=== PATIENT | female | born 1990 | race Caucasian/White ===

== ENCOUNTER → 2018-03-05 14:47 | Outpatient (CLI) | payer SELFPAY ==
[2018-03-05 17:55] LABS: Chlamydia Trachomatis by PCR Negative (Negative); Neisserai gonorrhoeae by PCR Negative (Negative); Probe Check PASS; Sample Adequacy Control PASS; Specimen Processing Control PASS
== END ==
PROVIDERS: Visit Provider Obstetrics & Gynecology
DX: Z11.3 Encounter for screening for infections with a predominantly sexual mode of transmission (principal)
CPT/HCPCS: 87491; 87591

== ENCOUNTER → 2018-03-23 14:33 | Outpatient (CLI) | payer SELFPAY ==
[2018-03-23 15:57] LABS: Absolute Neutrophil Count 3.9 X10^3/uL (2.0-7.7); Eosinophil# 0.04 X10^3/uL; Eosinophils% 0.7 % (0-5); Hematocrit 37.7 % (37-47); Hemoglobin 12.4 g/dl (12.0-15.0); Lymphocyte % 26.1 % (19-41); Mean Corp Hgb Conc 32.9 g/gl (32-36); Mean Corpuscular Hgb 28.9 pg (27.0-32.0); Mean Corpuscular Volume 87.9 fL (81-99); Mean Platelet Vol. 10.5 fl (6.2-12.0); Monocyte# 0.33 X10^3/uL; Monocyte% 5.7 % (0-10); Neutrophil # 3.86 X10^3/uL (2.7-7.7); Neutrophil % 67.3 % (47-70); Platelet Count 166 K/mm3 (150-450); RBC Distribution Width CV 12.3 % (11.6-14.6); RBC Distribution Width SD 39.5 fl (35.1-43.9); Red Blood Count 4.29 M/mm3 (4.2-5.4); White Blood Count 5.7 K/mm3 (4.4-11.0)
[2018-03-23 16:01] LABS: POSITIVE COUNT NO; POSITIVE DIFFERENTIAL NO; POSITIVE MORPHOLOGY NO
[2018-03-23 16:04] LABS: Color, Urine Yellow (Yellow); Glucose, Dipstick Normal (Normal); Ketone-Dipstick Negative (Negative); Leukocyte Esterase-Dipstick 100 /ul (Negative); Nitrite-Dipstick Negative (Negative); Occult Blood-Urine Negative /ul (Negative); Protein-Dipstick Negative (Negative); Urine Bilirubin Dipstick Negative (Negative); Urine Clarity Sl. Cloudy (Clear); Urine Urobilinogen Normal (Normal)
[2018-03-23 16:18] LABS: Amphetamine Urine VISTA NEGATIVE (<1000 ng/mL); Barbiturate Urine VISTA NEGATIVE (< 200 ng/mL); Benzodiazepine Urine VISTA NEGATIVE (< 200 ng/mL); Cocaine Urine VISTA NEGATIVE (< 300 ng/mL); Ecstacy Urine VISTA NEGATIVE (< 500 ng/mL); Methadone Urine VISTA NEGATIVE (< 300 ng/mL); PCP Urine VISTA NEGATIVE (< 25 ng/mL); THC Urine VISTA NEGATIVE (< 50 ng/mL); Vista UDS pH Range 6
[2018-03-23 16:26] LABS: Thyroid Stim Hormone (TSH) 0.92 uIU/mL (0.358-3.74)
[2018-03-24 09:42] LABS: HIV - WCH Non-Reactive (Nonreactive); Rubella IgG 77.1 IU/mL
[2018-03-25 13:10] LABS: HEPATITIS B SURFACE AG Negative (Negative); Hep C Antibodies <0.1 s/co ratio (0.0-0.9)
[2018-03-26 02:59] LABS: Prenatal RPR NONREACTIVE (NONREACTIVE)
== END ==
PROVIDERS: Visit Provider Obstetrics & Gynecology
DX: Z34.81 Encounter for supervision of other normal pregnancy, first trimester (principal)
CPT/HCPCS: 36415; 80307; 81002; 84443; 85025; 86703; 86762; 86803; 87340

== ENCOUNTER → 2018-07-16 10:16 | Outpatient (CLI) | payer MEDICAID, SELFPAY ==
[2018-07-16 13:41] LABS: Hematocrit 33.6 % (37-47); Hemoglobin 10.9 g/dl (12.0-15.0); Mean Corp Hgb Conc 32.4 g/gl (32-36); Mean Corpuscular Hgb 29.5 pg (27.0-32.0); Mean Corpuscular Volume 90.8 fL (81-99); Mean Platelet Vol. 10.2 fl (6.2-12.0); Platelet Count 164 K/mm3 (150-450); RBC Distribution Width CV 12.2 % (11.6-14.6); RBC Distribution Width SD 40.3 fl (35.1-43.9); White Blood Count 5.7 K/mm3 (4.4-11.0)
[2018-07-16 13:42] LABS: Scan Indicated on CBC? Y/N NO
[2018-07-16 13:46] LABS: Glucose Challenge Gest 1H 50g 69 mg/dL (70-140)
== END ==
PROVIDERS: Visit Provider Obstetrics & Gynecology
DX: Z34.83 Encounter for supervision of other normal pregnancy, third trimester (principal)
CPT/HCPCS: 36415; 82950; 85027; 86850

== ENCOUNTER → 2018-09-02 13:44 | Outpatient (CLI) | payer MEDICAID, SELFPAY ==
[2014-09-08 17:10] VITALS: BMI 24.3
== END ==
PROVIDERS: Visit Provider Obstetrics & Gynecology
DX: Z36.85 Encounter for antenatal screening for Streptococcus B (principal)
CPT/HCPCS: 87077; 87081; 87186

== ENCOUNTER 2018-10-03 08:35 | Inpatient (IN) | payer MEDICAID, SELFPAY ==
[2014-09-08 17:10] VITALS: BMI 24.3
[2018-10-03 09:27] VITALS: BMI 23.8
[2018-10-03] MEDS: Lactated Ringers 1,000 ML 50 ML IV (09:50)
[2018-10-03 10:11] LABS: Absolute Lymphocyte Count 1.31 X10^3/ul (0.83-4.51); Absolute Neutrophil Count 3.9 X10^3/uL (2.0-7.7); Basophil# 0.01 X10^3/uL; Basophil% 0.2 % (0-1); Eosinophil# 0.02 X10^3/uL; Eosinophils% 0.4 % (0-5); Hemoglobin 13.1 g/dl (12.0-15.0); Lymphocyte # 1.31 X10^3/ul (4.0); Lymphocyte % 23.1 % (19-41); Mean Corp Hgb Conc 33.6 g/gl (32-36); Mean Corpuscular Hgb 30.3 pg (27.0-32.0); Mean Corpuscular Volume 90.1 fL (81-99); Mean Platelet Vol. 10.9 fl (6.2-12.0); Monocyte# 0.46 X10^3/uL; Monocyte% 8.1 % (0-10); Neutrophil # 3.87 X10^3/uL (2.7-7.7); Platelet Count 108 K/mm3 (150-450); RBC Distribution Width CV 12.9 % (11.6-14.6); RBC Distribution Width SD 41.8 fl (35.1-43.9); Red Blood Count 4.33 M/mm3 (4.2-5.4); White Blood Count 5.7 K/mm3 (4.4-11.0)
[2018-10-03 10:12] LABS: POSITIVE COUNT NO; POSITIVE DIFFERENTIAL NO; POSITIVE MORPHOLOGY NO
[2018-10-03] MEDS: Oxytocin 30 units/NS 500 ml 30 UNITS/500 ML IV.SOLN IV (13:41)
[2018-10-03] MEDS: Oxytocin 30 units/NS 500 ml 30 UNITS/500 ML IV.SOLN 334 UNITS IV (17:40)
--- NOTE | 2018-10-03 18:09 | PCM.OPRPT ---
Vaginal Delivery Maternal Presentation: Spontaneous Rupture of Membranes Presents at 39w4d ega with SROM at home 0700 today Amniotic Membrane Rupture Type: Spontaneous at home Rupture of Membrane time: 0700 Amniotic Fluid Description: Clear Final DAVIDA: 10/06/18 Final DAVIDA Source: [place] <20 weeks Gestational age: 39 Weeks and 4 Days Date of Procedure: 10/03/18 Pre-Operative Diagnosis: Labor Post-Operative Diagnosis: same Surgery/ Procedure Performed: Spontaneous Vaginal Delivery Type of Anesthesia: None, Local with 2% lidocaine - for repair Description of Procedure: Shabana was admitted with SROM. Irregular contractions were noted. She was started on ampillin intravenously for GBS prophylaxis. After 3 hours with irregular contractions noted pitocin augmentation was started. She then progessed to FD and pushed over 3 contractions to deliver a live female without complication. At delivery the mouth and nares were suctioned with a bulb suction. Baby was then placed on mom's chest. Delayed cord clamping was employed. The cord was then clamped and cut. Cord bloods were collected. The placenta was delivered spontaneously intact with an eccentrically located 3VC. The uterus contracted well. Inspection revealed a small posterior vaginal perineal second degree tear that was repaired under local anesthesia with 2-0 Vicryl suture. Presentation: Vertex Placental Delivery Description: Spontaneous Placenta Disposition: [facility] Percentage of Placenta Abruption: 0 Cord Vessel Description: 3 Vessels Nuchal Cord Compression: Without compression Cord Entanglement: None Estimated Blood Loss: 200cc A gender: Female (1 minute): 9 (5 minute): 9 Episiotomy Description: None Laceration: Midline, Perineal Extension/lac, Vaginal Extension/lac, 2nd degree Medications given after delivery: IV Pitocin Complications: None
[2018-10-03] MEDS: Oxytocin 30 units/NS 500 ml 30 UNITS/500 ML IV.SOLN 167 UNITS IV (18:10)
--- NOTE | 2018-10-03 18:16 | DCINST_ITS ---
Discharge Diet: No Restrictions Discharge Activity: Return to Normal Activity, May Drive, May Shower Return to work on:: 12/03/18 May resume sexual activity in: 6 weeks Call your doctor if your incision/area has: Sudden Increased Bleeding, Increased Pain/ Swelling, Foul Smelling Discharge Call your doctor if you observe: Fever of 101 or Higher, Inability to urinate, Inability to have a bowel movement, Using more than one pad per hour, Shortness of breath, Chest pain, Calf discomfort, Uncontrolled pain Cleanse incision/area with: Soap & Water Additional Instructions: If you experience any of the following, contact your healthcare provider. * Bleeding that soaks a pad every hour for 2 hours * Fever 100.4 or higher * Unrelieved incision or abdominal pain * Swelling, redness, discharge or bleeding from your incision or episiotomy site * Your incision begins to separate * Problems urinating (including inability to urinate or burning while urinating). * Visual changes * Severe headache * Flu-like symptoms * Pain or redness in one of both of your breasts * Pain, warmth, tenderness or swelling in your legs, especially the calf area * Frequent nausea and vomiting * Symptoms of depression or anxiety If you experience any of the following, call 911 or go to the nearest Emergency Room. * Chest pain * Problems breathing * Seizure activity * Partial or complete paralysis of a body part, slurred speech, weakness or drooping of the face, or a sudden inability to walk or hold your balance Allergies/Adverse Reactions: Allergies Cephalosporins Allergy (Verified 10/03/18 09:29) Anaphylaxis Medications to take at Discharge Vits [Prenatabs FA ] 1 tablet PO DAILY 09/08/14 Ferrous Sulfate 325 mg PO DAILY 10/03/18 Ibuprofen [Motrin] 600 mg PO Q6H PRN PRN #30 tab 10/03/18 The following prescriptions were given: Ibuprofen [Motrin] 600 mg PO Q6H PRN PRN #30 tab PRN Reason: pain or cramping Please Follow Up With: Mary Mena MD When: 6 weeks Primary Care Physician: Ksenia Hopson NP-C [Primary Care Provider] - Test Results: Test results from this visit will be discussed in further detail at your follow- up appointment, if applicable. Proposed Discharge Date: 10/05/18
[2018-10-03] MEDS: Ibuprofen 600 MG Tablet PO (19:00)
[2018-10-03] MEDS: 0.9% Saline Lock 10 ML Syringe IV (19:29)
[2018-10-03 20:10] VITALS: BP 113/58; PULSE 74; RESP 18; TEMP 36.9
[2018-10-04 01:00] VITALS: BP 107/59; PULSE 77; RESP 18; TEMP 36.1; O2SAT 97
[2018-10-04 03:55] VITALS: BP 99/52; PULSE 73; RESP 16; TEMP 36.8; O2SAT 98
[2018-10-04 06:25] LABS: Hematocrit 38.3 % (37-47); Mean Corp Hgb Conc 33.9 g/gl (32-36); Mean Corpuscular Volume 88.2 fL (81-99); Mean Platelet Vol. 10.8 fl (6.2-12.0); Platelet Count 124 K/mm3 (150-450); RBC Distribution Width CV 12.7 % (11.6-14.6); RBC Distribution Width SD 39.8 fl (35.1-43.9); Red Blood Count 4.34 M/mm3 (4.2-5.4)
[2018-10-04 06:37] LABS: Scan Indicated on CBC? Y/N NO
--- NOTE | 2018-10-04 07:12 | PN_ITS ---
Subjective: No complaints other than some cramping with nursing. Bleeding light. Objective: Afeb VSS. Hgb stable - Physical Exam General: Alert, Oriented x3, Cooperative, No apparent distress Lungs: Clear to auscultation, Normal air movement Cardiovascular: Regular rate, Regular Rhythm Abdomen: Soft, Non Tender, Non-Distended, - - Fundus firm nontender Extremities: No edema Skin: No rashes Neurological: Neuro grossly intact Psych/Mental Status: Normal Affect Comment: Lochia light Vital Signs Temp Pulse Resp BP Pulse Ox 98.3 F 73 16 99/52 L 98 10/04/18 03:55 10/04/18 03:55 10/04/18 03:55 10/04/18 03:55 10/04/18 03:55 Oxygen Delivery Method Room Air Weight: 176 lb Body Mass Index (BMI) 23.8 Intake and Output for Last 24 Hours 10/02/18 10/03/18 10/04/18 23:59 23:59 23:59 Intake Total 1409 / 1409 Output Total 2550 / 2550 Balance -1141 / -1141 Laboratory Tests Past 24 Hrs 10/03/18 10/03/18 10/03/18 09:50 09:50 09:50 WBC 5.7 RBC 4.33 Hgb 13.1 Hct 39.0 MCV 90.1 MCH 30.3 MCHC 33.6 RDW 12.9 RDW Differential 41.8 Plt Count 108 L MPV 10.9 Immature Gran % (Auto) 0.200 Neut % (Auto) 68.0 Lymph % (Auto) 23.1 [place] % (Auto) 8.1 Eos % (Auto) 0.4 Baso % (Auto) 0.2 Absolute Neuts (auto) 3.9 Absolute Lymphs (auto) 1.31 Total Counted Not Reportable Blood Type A NEGATIVE Antibody Screen TNP NEGATIVE Screen Baby's Blood Type Baby's KATEY 10/03/18 10/04/18 22:30 05:40 WBC 9.0 RBC 4.34 Hgb 13.0 Hct 38.3 MCV 88.2 MCH 30.0 MCHC 33.9 RDW 12.7 RDW Differential 39.8 Plt Count 124 L MPV 10.8 Immature Gran % (Auto) Neut % (Auto) Lymph % (Auto) [place] % (Auto) Eos % (Auto) Baso % (Auto) Absolute Neuts (auto) Absolute Lymphs (auto) Total Counted Blood Type Antibody Screen Screen NEGATIVE Baby's Blood Type A POSITIVE Baby's KATEY NEGATIVE Medical Necessity - Tobacco Use Smoking Status: Never smoker Assessment/Plan Doing well on PP day#1. Continue routine PP care. Will plan for discharge tomorrow.
[2018-10-04 08:55] VITALS: BP 115/75; PULSE 82; RESP 18; TEMP 36.8; O2SAT 97
[2018-10-04] MEDS: Ibuprofen 600 MG Tablet PO (09:36)
[2018-10-04] MEDS: Ferrous Sulfate 325 MG Tablet PO (09:37)
[2018-10-04 12:40] VITALS: BP 106/58; PULSE 77; RESP 18; TEMP 36.7; O2SAT 97
[2018-10-04] MEDS: Senna/Docusate Sodium 1 Tablet PO (12:50)
[2018-10-04] MEDS: Prenatal Vits Tablet 1 TABLET PO (12:50)
--- NOTE | 2018-10-04 15:04 | NURSING ---
this director of emergency nursing reviewed the documentation completed by Naeem Singh and it is complete.
[2018-10-04 16:00] VITALS: BP 121/83; PULSE 64; RESP 18; TEMP 36.8; O2SAT 98
[2018-10-04 20:25] VITALS: BP 122/76; PULSE 88; RESP 18; TEMP 36.8
[2018-10-05] MEDS: Ibuprofen 600 MG Tablet PO (01:16)
[2018-10-05 01:19] VITALS: BP 117/77; PULSE 71; RESP 18; TEMP 36.6
--- NOTE | 2018-10-05 07:47 | PCM.PN.OB ---
Subjective: PPD#2 Doing wel. Nursing. Baby is sleepy . States some epigastric pain this am. - Physical Exam General: Alert, Oriented x3, Cooperative, No apparent distress HEENT: Atraumatic Neck: Supple Neurological: Cranial nerves II-XII grossly intact Vital Signs Temp Pulse Resp BP Pulse Ox 97.9 F 71 18 117/77 98 10/05/18 01:19 10/05/18 01:19 10/05/18 01:19 10/05/18 01:10/04/18 16:00 Oxygen Delivery Method Room Air Weight: 79.832 kg Body Mass Index (BMI) 23.8 Intake and Output for Last 24 Hours 10/03/18 10/04/18 10/05/18 23:59 23:59 23:59 Intake Total 1409 / 1409 Output Total 2550 / 2550 Balance -1141 / -1141 Medical Necessity - Tobacco Use Smoking Status: Never smoker Assessment/Plan PPD#2 Stable pp. Dischg home today. Diff dx of epigastric pain reviewed. Recommend watch and if inc after meals, consider LFTs (cholecystitis possible after delivery) May also try : avoid ibuprofen/ aleve and take prn tums, mylanta empiric trial. RTO in 6 wk for pp check.
[2018-10-05 09:36] VITALS: BP 107/66; PULSE 70; RESP 16; TEMP 36.6; O2SAT 97
== END 2018-10-05 11:30 | disposition home or self-care (01) | DRG 560 ==
PROVIDERS: Admitting Provider Obstetrics & Gynecology; Family Provider Nurse Practitioner Family; PCP Nurse Practitioner Family; Visit Provider Obstetrics & Gynecology
DX: O98.82 Other maternal infectious and parasitic diseases complicating childbirth (principal); B95.1 Streptococcus, group B, as the cause of diseases classified elsewhere; O70.1 Second degree perineal laceration during delivery; Z3A.39 39 weeks gestation of pregnancy; Z37.0 Single live birth; O90.89 Other complications of the puerperium, not elsewhere classified; R10.13 Epigastric pain
CPT/HCPCS: 59025; 59050; 85025; 85027; 85461; 86850; 86900; 90384; 99218; J7120; A4216; G0378; J0290; J2790

== ENCOUNTER → 2018-11-25 14:16 | Outpatient (CLI) | payer MEDICAID, SELFPAY ==
[2018-11-30 13:27] LABS: HPV Reflexed? NOT INDICATED
== END ==
LOC: WOBLAB 14:17 → LABSPEC 14:17
PROVIDERS: Family Provider Nurse Practitioner Family; PCP Nurse Practitioner Family; Visit Provider Obstetrics & Gynecology
DX: Z12.4 Encounter for screening for malignant neoplasm of cervix (principal)
CPT/HCPCS: 88175; G0145

== ENCOUNTER → 2019-02-14 18:06 | Outpatient (CLI) | payer MEDICAID, SELFPAY ==
[2019-02-15 03:03] LABS: Chlamydia Trachomatis by PCR Negative (Negative); Neisserai gonorrhoeae by PCR Negative (Negative); Probe Check PASS; Sample Adequacy Control PASS; Specimen Processing Control PASS
== END ==
PROVIDERS: Referring Provider Obstetrics & Gynecology; Visit Provider Obstetrics & Gynecology
DX: Z11.3 Encounter for screening for infections with a predominantly sexual mode of transmission (principal)
CPT/HCPCS: 87491; 87591

== ENCOUNTER → 2019-03-14 09:44 | Outpatient (CLI) | payer MEDICAID, SELFPAY ==
--- NOTE | 2019-03-14 09:47 | VDLE_ITS ---
Reason For Study: Edema RIGHT LEFT GSV is normal. GSV is normal. CFV is compressible, spontaneous, phasic, CFV is compressible, spontaneous, phasic, competent and demonstrates normal competent, and demonstrates normal augmentation. augmentation. FV is compressible, spontaneous, phasic, Lt FV is compressible, spontaneous, phasic, competent and demonstrates normal and INCOMPETENT augmentation. POP V is compressible, spontaneous, phasic, Lt PopV is compressible, spontaneous, phasic, competent and demonstrates normal and INCOMPETENT. augmentation. T/P Trunk is compressible. T/P Trunk is compressible. PTV is compressible. PTV is compressible. LT PerV is compressible. RT PerV is compressible. SFJ is competent and measures 0.52cm x 0.56 SFJ is competent and measures 0.35cm x 0.36 cm. cm. GSV proximal thigh measures 0.31cm x 0.28 cm. GSV proximal thigh measures 0.28cm x 0.28 cm. GSV at knee measures 0.25cm x 0.25 cm. GSV at knee measures 0.13cm x 0.15 cm. GSV is competent throughout. GSV is competent throughout. SSV proximal calf is INCOMPETENT for greater SSV proximal calf is INCOMPETENT for greater than 0.5 seconds and measures 0.84cm x 1.05 than 0.5 seconds and measures 0.70cm x 0.68 cm. cm. Incompetent perf noted Rt calf 12cm proximal to medial malleolus. Procedure Exam performed in department. A preliminary report was called and/or faxed to Dr. Irving. Interpretation Summary Deep veins of the lower extremities are bilaterally patent and compressible segmentally. There is no evidence of deep vein thrombosis on either side. Valvular competence appears intact within the proximal deep venous system on the right . The left femoral vein and popliteal vein are incompetent. The great saphenous veins appear bilaterally patent and compressible segmentally. Sapheno-femoral junctions are bilaterally competent . Valvular competence appears to be intact segmentally within the great saphenous veins bilaterally. Small saphenous veins are patent and incompetent bilaterally. An incompetent focused factory manager vein is noted in the right calf, located 12 centimeters proximal to the right medial malleolus. Ordering Physician: Jane Irving Referring Physician: Ksenia Hopson Performed By: Debra Sarah, STELLA, RVT
== END ==
PROVIDERS: Family Provider Nurse Practitioner Family; PCP Nurse Practitioner Family; Referring Provider Podiatrist; Visit Provider Podiatrist
DX: R60.0 Localized edema (principal); I87.2 Venous insufficiency (chronic) (peripheral); M79.605 Pain in left leg; M79.604 Pain in right leg
CPT/HCPCS: 93970

== ENCOUNTER → 2019-03-14 11:56 | Outpatient (CLI) | payer MEDICAID, SELFPAY ==
[2019-03-14 12:31] LABS: Hematocrit 43.9 % (37-47); Hemoglobin 14.1 g/dL (12.0-15.0); Mean Corp Hgb Conc 32.1 g/dL (32-36); Mean Corpuscular Hgb 28.3 pg (27.0-32.0); Mean Corpuscular Volume 88.2 fL (81-99); Mean Platelet Vol. 10.2 fl (6.2-12.0); Platelet Count 159 K/mm3 (150-450); RBC Distribution Width CV 11.9 % (11.6-14.6); RBC Distribution Width SD 38.1 fl (35.1-43.9); Red Blood Count 4.98 M/mm3 (4.2-5.4); White Blood Count 4.9 K/mm3 (4.4-11.0)
[2019-03-14 13:14] LABS: AST(SGOT) 14 U/L (15-37); Alanine Aminotransfer ALT/SGPT 18 U/L (13-56)
== END ==
PROVIDERS: Family Provider Nurse Practitioner Family; PCP Nurse Practitioner Family; Referring Provider Podiatrist; Visit Provider Podiatrist
DX: B35.1 Tinea unguium (principal); R60.0 Localized edema; I87.2 Venous insufficiency (chronic) (peripheral); M79.604 Pain in right leg; M79.605 Pain in left leg
CPT/HCPCS: 36415; 84450; 84460; 85027; 93970

== ENCOUNTER → 2019-04-21 11:19 | Outpatient (CLI) | payer MEDICAID, SELFPAY ==
[2019-04-21 11:58] LABS: Hematocrit 41.1 % (37-47); Hemoglobin 13.5 g/dL (12.0-15.0); Mean Corp Hgb Conc 32.8 g/dL (32-36); Mean Corpuscular Hgb 28.9 pg (27.0-32.0); Mean Platelet Vol. 10.2 fl (6.2-12.0); Platelet Count 157 K/mm3 (150-450); RBC Distribution Width CV 12.4 % (11.6-14.6); RBC Distribution Width SD 39.6 fl (35.1-43.9); Red Blood Count 4.67 M/mm3 (4.2-5.4)
[2019-04-21 12:43] LABS: AST(SGOT) 15 U/L (15-37); Alanine Aminotransfer ALT/SGPT 20 U/L (13-56)
== END ==
PROVIDERS: Family Provider Nurse Practitioner Family; PCP Nurse Practitioner Family; Referring Provider Podiatrist; Visit Provider Podiatrist
DX: B35.1 Tinea unguium (principal)
CPT/HCPCS: 36415; 84450; 84460; 85027

== ENCOUNTER 2024-01-13 16:38 | Emergency (ER) | payer MEDICAID, SELFPAY ==
[2024-01-13 16:39] VITALS: BP 149/88; PULSE 82; RESP 18; TEMP 36.9; O2SAT 98; BMI 21.3
--- NOTE | 2024-01-13 17:14 | CT_ITS ---
STUDY: CT CERVICAL SPINE WITHOUT CONTRAST REASON FOR EXAM: Female, 33 years old. neck pain RADIATION DOSAGE (If Supplied By Facility): CTDIvol = ( 133 ) mGy, DLP = ( 304.60 ) mGycm TECHNIQUE: High resolution transaxial imaging was performed without contrast material. Sagittal and coronal images were reconstructed. Individualized dose optimization techniques were used for this CT. COMPARISON: None FINDINGS: Normal craniovertebral junction. Normal anterior atlantoaxial articulation. Normal odontoid process. Normal cervical lordosis. Normal vertebral bodies and posterior osseous elements. C2-3: Normal endplates. Normal disc height and morphology. Normal central canal and intervertebral neuroforamina. C3-4: Normal endplates. Normal disc height and morphology. Normal central canal and intervertebral neuroforamina. C4-5: Normal endplates. Normal disc height and morphology. Normal central canal and intervertebral neuroforamina. C5-6: Normal endplates. Normal disc height and morphology. Normal central canal and intervertebral neuroforamina. C6-7: Normal endplates. Normal disc height and morphology. Normal central canal and intervertebral neuroforamina. C7-T1: Normal endplates. Normal disc height and morphology. Normal central canal and intervertebral neuroforamina. Small calcified density in the right upper lobe of the lung likely granuloma.. CT/Spine Cervical without Contras IMPRESSION: Normal unenhanced CT examination of the cervical spine. Electronically Signed: Joseph Wilson MD at 17:59 EDT ,
--- NOTE | 2024-01-13 17:14 | CT_ITS ---
STUDY: CT BRAIN WITHOUT CONTRAST REASON FOR EXAM: Female, 33 years old. headache RADIATION DOSAGE (If Supplied By Facility): CTDIvol = ( 44.99 ) mGy, DLP = ( 779.24 ) mGycm TECHNIQUE: Transaxial CT imaging of the brain was performed without administration of intravenous contrast material. Individualized dose optimization techniques were used for this CT. COMPARISON: No relevant priors. FINDINGS: Normal soft tissue structures. Normal calvarium. Normal size ventricles and extra-axial spaces for the patient''s age. Normal white matter tracts of the cerebral hemispheres. Normal basal ganglia and thalami. Normal brainstem. Normal cerebellum. There is no intracranial hemorrhage. There are no findings of an acute ischemic infarction. Normal visualized paranasal sinuses. CT/Brain/Head without Contrast IMPRESSION: Normal unenhanced CT scan of the brain. Electronically Signed: Joseph Wilson MD at 17:55 EDT ,
--- NOTE | 2024-01-13 17:17 | EDS_ITS ---
HPI History of Present Illness Chief Complaint: Headache Narrative Narrative: 33-year-old female presenting with neck and headache pain. Patient states that a couple of weeks ago it started on the right side and right trapezius region. She states it radiated down her arm to some degree but that resolved. She states that she started to get pain on both sides of her neck and radiating up into her posterior scalp and head. It radiates up to the left side the most. She does have a little bit of nausea associated with it but has not vomited. No fevers or chills. Denies any trauma. No paresthesias in the upper extremities. She states has been using ibuprofen with minimal relief. [facility] Medical History Seizure Home Medications ?Medication ?Instructions ?Recorded ?Last Taken ?Type vits,calcium no.78-iron 1 tab PO DAILY 09/08/14 10/02/18 History fumarate-folic acid 29 mg-1 mg tablet (Prenatabs FA) ferrous sulfate 325 mg (65 mg 325 mg PO DAILY 10/03/18 10/02/18 History iron) tablet ibuprofen 600 mg tablet 600 mg PO Q6H PRN PRN pain or 10/03/18 Unknown Rx cramping #30 tabs cyclobenzaprine 10 mg tablet 10 mg PO TID PRN Muscle Spasm #20 01/13/24 Unknown Rx TABLETS Allergy/AdvReac Type Severity Reaction Status Date / Time Cephalosporins Allergy Anaphylaxis Verified 01/13/24 16:51 Social History Smoking Status: Never smoker EXAM Physical Exam Const Vital Signs: 01/13/24 16:39 01/13/24 18:39 01/13/24 18:55 Temperature 98.5 F 97.7 F L 97.7 F L Temperature Source Temporal Temporal Pulse Rate 82 105 H 105 H Respiratory Rate 18 16 16 Blood Pressure 149/88 H 106/69 106/69 Blood Pressure Mean 108 81 81 Pulse Ox 98 98 98 Oxygen Delivery Method Room Air Room Air Positive well nourished General Appearance ED: NAD; Negative for pallor HEENT Reports normocephalic and TM's clear atraumatic Tympanic Membrane ED: Yes TM's clear Neck no lymphadenopathy and supple Neck Narrative: No midline spinal tenderness, deformity, step-off. There is bilateral parasp inal muscular tenderness which extends up into the left posterior scalp. No rashes, erythema, bruise. Resp normal respiratory effort and clear to auscultation bilaterally Cardio regular rate GI non-tender Back/Spine Thoracic Spine / Upper Back: Negative for thoracic spinal tenderness Lumbar Spine / Lower Back: Negative for lumbar spinal tenderness Extremity normal to inspection Neuro oriented x3 and CN's II-XII intact bilaterally Sensorium / Orientation: awake and alert Motor Exam: strength 5/5 throughout Psych mental status grossly normal Skin General Skin Exam: Negative for jaundice or pallor MDM MDM MDM Narrative Medical decision making narrative: Patient presenting with neck pain and headache pain. Differential includes migraine headache, tension headache, cervical strain. Patient has no meningeal signs. I do not believe she has a migraine because she is having light sensitivity and sound sensitivity. Due to the duration of the patient's pain we will obtain CT brain and cervical spine. Patient medicated with Toradol and Norflex. CBC to assess white blood cell count, hemoglobin, platelets. CMP to assess renal function, electrolytes, glucose. CBC shows normal blood cell count, hemoglobin, platelets. BMP shows normal renal function, electrolytes. CT brain and cervical spine were negative for acute findings. Patient feeling better on reevaluation. I recommend she follow-up with her PCP to ensure resolution. She is given cyclobenzaprine. She is counseled she can use Tylenol and ibuprofen alternating doses. Return precautions discussed. Impression: 1. Cervical strain 2. Headache Lab Data Labs: Laboratory Results - last 24 hr 01/13/24 17:24 WBC 5.4 RBC 4.53 Hgb 13.3 Hct 40.5 MCV 89.4 MCH 29.4 MCHC 32.8 RDW Std Deviation 37.3 RDW Coeff of [place] 11.5 L Plt Count 180 MPV 10.4 Immature Gran % (Auto) 0.200 Neut % (Auto) 61.8 Lymph % (Auto) 28.0 [place] % (Auto) 8.3 Eos % (Auto) 1.1 Baso % (Auto) 0.6 Absolute Neuts (auto) 3.4 Absolute Lymphs (auto) 1.52 Nucleated RBC % 0 Sodium 139 Potassium 4.3 Chloride 104 Carbon Dioxide 29.0 Anion Gap 6 BUN 16 Creatinine 0.83 Estim Creat Clear Calc 106.56 Est GFR (MDRD) Af Amer 101 Est GFR (MDRD) Non-Af 84 BUN/Creatinine Ratio 19.3 Glucose 129 H Calcium 9.3 Radiography Diagnostic Testing: Clinical Impression(s) from Imaging Studies Brain CT 01/13/24 17:14 IMPRESSION: Normal unenhanced CT scan of the brain. Electronically Signed: Joseph Wilson MD at 17:55 EDT , Cervical Spine CT 01/13/24 17:14 IMPRESSION: Normal unenhanced CT examination of the cervical spine. Electronically Signed: Joseph Wilson MD at 17:59 EDT , ADDENDUM: 01/13/24 1809 IMPRESSION: undefined Discharge Plan Triage Chief Complaint: Headache ED Provider: Swapnil Sales Dx/Rx/DC Orders Instructions: ED Headache Unspecified, ED Neck Sprain or Strain Prescriptions: New cyclobenzaprine 10 mg tablet 10 mg PO TID PRN (Reason: Muscle Spasm) Qty: 20 0RF No Action [id number] [Prenatabs FA] 1 TABLET tablet 1 tab PO DAILY ferrous sulfate 325 MG tablet 325 mg PO DAILY ibuprofen 600 MG tablet 600 mg PO Q6H PRN PRN (Reason: pain or cramping) Qty: 30 1RF Primary Care Provider: Manny Bernal Referrals: Manny Bernal PA-C [Primary Care Provider] - Print Language: Barbadian Disposition Disposition: Home, Self Care
[2024-01-13] MEDS: Orphenadrine 60 MG/2 ML Ampul IM (17:39)
[2024-01-13] MEDS: Ketorolac 15 MG/ML Vial IV (17:39)
[2024-01-13 17:41] LABS: Absolute Lymphocyte Count 1.52 X10^3/uL (0.83-4.51); Absolute Neutrophil Count 3.4 X10^3/uL (2.0-7.7); Basophil# 0.03 X10^3/uL; Basophil% 0.6 % (0-1); Eosinophil# 0.06 X10^3/uL; Eosinophils% 1.1 % (0-5); Hematocrit 40.5 % (37-47); Hemoglobin 13.3 g/dL (12.0-15.0); Lymphocyte # 1.52 X10^3/ul (0.83-4.51); Mean Corp Hgb Conc 32.8 g/dL (32-36); Mean Corpuscular Hgb 29.4 pg (27.0-32.0); Mean Corpuscular Volume 89.4 fL (81-99); Mean Platelet Vol. 10.4 fl (6.2-12.0); Monocyte# 0.45 X10^3/uL; Monocyte% 8.3 % (0-10); NRBC Flagged by Analyzer 0 % (0-5); Neutrophil # 3.35 X10^3/uL (2.7-7.7); Neutrophil % 61.8 % (47-70); Platelet Count 180 K/mm3 (150-450); RBC Distribution Width CV 11.5 % (11.6-14.6); RBC Distribution Width SD 37.3 fl (35.1-43.9); Red Blood Count 4.53 M/mm3 (4.2-5.4); White Blood Count 5.4 K/mm3 (4.4-11.0)
[2024-01-13 17:49] LABS: Anion Gap 6 (5-15); BUN 16 mg/dL (7-18); BUN/Creat Ratio 19.3 RATIO (10-20); Calcium,Total 9.3 mg/dL (8.5-10.1); Chloride 104 mmol/L (98-107); Creatinine, Serum 0.83 mg/dL (0.55-1.02); EST Glomerular Filtration Rate 84 mL/min (>60); Est Glom Filt Rate - Afr Amer 101 mL/min (>60); Estimated Creatinine Clearance 106.56 ml/min; Glucose 129 mg/dL (74-106); Potassium 4.3 mmol/L (3.5-5.1); Sodium Level 139 mmol/L (136-145)
[2024-01-13 18:39] VITALS: BP 106/69; PULSE 105; RESP 16; TEMP 36.5; O2SAT 98
[2024-01-13 18:55] VITALS: BP 106/69; PULSE 105; RESP 16; TEMP 36.5; O2SAT 98
== END 2024-01-13 19:11 | disposition home or self-care (01) ==
PROVIDERS: Emergency Provider Student in an Organized Health Care Education/Training Program; PCP Physician Assistant; Visit Provider Student in an Organized Health Care Education/Training Program
DX: S16.1XXA Strain of muscle, fascia and tendon at neck level, initial encounter (principal); R51.9 Headache, unspecified; R11.0 Nausea; X58.XXXA Exposure to other specified factors, initial encounter; Z79.899 Other long term (current) drug therapy
CPT/HCPCS: 70450; 72125; 80048; 85025; 96372; 96374; 99282; A4216